=== PATIENT | male | born 1975 | race Two or more races ===

== ENCOUNTER → 2024-06-03 10:47 | Outpatient (REF) | payer BC, SELFPAY | LOC: DHSLP 10:47 | PROVIDERS: ATTENDING PHYSICIAN Nurse Practitioner Adult Health | DX: G47.33 Obstructive sleep apnea (adult) (pediatric) (principal); G47.31 Primary central sleep apnea; R09.02 Hypoxemia | CPT/HCPCS: 95800 ==